=== PATIENT | female | born 1935 | race Caucasian/White ===

== ENCOUNTER 2016-03-30 11:27 | Emergency (ER) | payer MEDICARE ==
[2016-03-30] MEDS ORDERED: CEFTRIAXONE 1 GM VIAL ONE (12:53)
[2016-03-30] MEDS ORDERED: SODIUM CHLORIDE 0.9% 1,000 ML ONE (12:54)
[2016-03-30] MEDS ORDERED: SODIUM CHLORIDE 0.9% 100 ML IV ONE (12:54)
== END 2016-03-30 16:46 | disposition other institution (70) ==
LOC: ER 11:27
CPT/HCPCS: 36415 ×2; 71010 ×2; 80053 ×2; 81001 ×2; 82550 ×2; 83735 ×2; 84484 ×2; 85025 ×2; 85610 ×2; 85730 ×2; 87088 ×2; 96361 ×2; 96365 ×2; 99285; J0696